=== PATIENT | female | born 1955 | race Caucasian/White ===

== ENCOUNTER 2016-11-17 07:03 | Day surgery (SDC) | payer OTHER ==
[~2016-11-17] VITALS: Ht 167.6 cm; Wt 118.0 kg
[~2016-11-17 07:03] MED LIST: ACTOS45 MG PO; ASPIR-LOW81 MG PO; CINNAMON500 MG PO; DETROL2 MG PO; GLUCOPHAGE1000 MG PO; INVOKANA300 MG PO; LIPITOR40 MG PO; MICRONASE5 MG PO; NEXIUM40 MG PO
[2016-11-17 07:28] VITALS: BP 160/88
[2016-11-17 08:20] LABS: EOSINOPHIL (%) 1.8 % (0-5); EOSINOPHIL COUNT 0.1 K/uL (0-0.3); HEMATOCRIT 36.3 % (36.0-46.0); INSTRUMENT ABS NEUTROPHIL CT 2.9 K/uL; LYMPHOCYTE COUNT 1.5 K/uL (1.0-2.8); MCH 20.9 PG (29.0-34.0); MCHC 28.4 G/DL (30.0-36.0); MCV 73.5 FL (83-99); MEAN PLAT.VOLUME 11.2 uM^3 (9.5-12.4); MONOCYTE (%) 9.2 % (3-12); MONOCYTE COUNT 0.5 K/uL (0-0.8); NEUTROPHIL (%) 58.6 % (45-76); NEUTROPHIL COUNT 2.9 K/uL (1.8-6.4); PLATELET COUNT 200 K/uL (156-360); RBC DIS.WIDTH-CV 20.8 % (11.8-14.6); RBC DIS.WIDTH-SD 54.2 % (39-53); RED BLOOD COUNT 4.94 M/uL (3.80-5.20); WHITE BLOOD COUNT 4.9 K/uL (4.1-10.2)
[2016-11-17 08:25] LABS: ANION GAP 9 MEQ/L (2-14); CHLORIDE 107 MEQ/L (99-109); POTASSIUM 3.8 MEQ/L (3.7-5.4); SAMPLE HEMOLYSIS CHECK 0; SAMPLE ICTERIC CHECK 0; SAMPLE LIPEMIA CHECK 0; SODIUM 142 MEQ/L (136-147)
[2016-11-17 08:31] LABS: GFR ESTIMATE (CALCULATED) > 59 mL/min/; GLUCOSE 121 mg/dL (70-99); UREA NITROGEN (BUN) 11 mg/dL (9-23)
[2016-11-17] MEDS ORDERED: IBUPROFEN800 MG PO (10:35)
[2016-11-17 10:42] LABS: POINT-OF-CARE METER ID UU13113675
[2016-11-17 11:42] VITALS: BP 134/63
[2016-11-17 12:45] VITALS: BP 155/72
[2016-11-17 14:25] VITALS: BP 145/73
== END 2016-11-17 15:03 | disposition home or self-care (01) ==
LOC: SDC 07:03
PROVIDERS: Obstetrics & Gynecology
DX: N39.3 Stress incontinence (female) (male) (principal); I10 Essential (primary) hypertension; K21.9 Gastro-esophageal reflux disease without esophagitis; E78.00 Pure hypercholesterolemia, unspecified; E78.1 Pure hyperglyceridemia; E11.9 Type 2 diabetes mellitus without complications; E66.01 Morbid (severe) obesity due to excess calories; Z68.41 Body mass index [BMI] 40.0-44.9, adult; Z80.49 Family history of malignant neoplasm of other genital organs; Z82.49 Family history of ischemic heart disease and other diseases of the circulatory system; Z84.2 Family history of other diseases of the genitourinary system; Z87.891 Personal history of nicotine dependence; Z79.82 Long term (current) use of aspirin; Z79.84 Long term (current) use of oral hypoglycemic drugs
CPT/HCPCS: 80048; 82948; 85025; 86900; 86901; C1771; J0330; J1580; J1885; J2250; J3010; J7050